=== PATIENT | male | born 1970 | race Caucasian/White ===

== ENCOUNTER 2017-01-08 01:54 | Emergency (ER) | payer OTHER ==
[~2017-01-08] VITALS: Ht 177.8 cm; Wt 113.6 kg
[2017-01-08 01:59] VITALS: BP 158/99; PULSE 64; RESP 26; O2SAT 100
--- NOTE | 2017-01-08 01:59 | ED.REPORT ---
HPI-Chest Pain 40 and Over Date of Service Jan 08, 2017 ED Provider: Sage Bowie MD Patient is a 46 year old male with a history of GERD and gastric ulcers who presents to the ED via EMS complaining of sharp epigastric abdominal pain that began this evening. Patient states reports radiation of his pain to his back. The patient went to work this morning and became dizzy due to the pain, ultimately calling EMS. He admits to hot flashes, diaphoresis, and nausea. Patient denies bloody/tarry stool. The patient reports having similar pain in the past, but it was not this severe and he did not seek evaluation of his pain. He denies a history of pancreatitis or gallbladder disease. The patient admits to drinking alcohol but states that he does not do so daily. Nursing Notes Stated Complaint: CHEST PAIN, ABD PAIN Chief Complaint: Chest Pain Nursing Notes Reviewed: Yes Allergies: Coded Allergies: No Known Allergies (Unverified , 01/08/17) Scheduled Omeprazole (Omeprazole) 20 Mg Tablet.dr 20 MG PO BID Scheduled PRN Ondansetron ODT (Ondansetron ODT) 8 Mg Tab.rapdis 8 MG PO QID PRN PRN For Nausea General Time Seen by MD: 01:59 Chief Complaint Other (abdominal pain) Hx Obtained From: Patient Arrived By: Ambulance Sudden in Onset?: No Onset Occurred: 1 - 4 hours ago Symptom Duration: Since onset Quality: Painful Severity: Current: Severe Severity: Maximum: Severe Recent Healthcare: No recent doctor visit, No recent hospitalization Similar Sx Previous: Yes Past Medical History Past Medical History gastric ulcer Reports: GERD, Hypertension Past Surgical History none reported Smoking History Unknown if Ever Smoker Social History Other Social History: Local resident Ambulatory Status Independent Review of Systems Constitutional: Reports: Fever (hot flashes) GI: Reports: Abdominal pain, Nausea, Denies: Bloody/tarry stool Skin: Reports Diaphoresis Neurologic: Reports: Dizziness, Denies: Change LOC Complete sys rev & neg: except as marked. Physical Exam Initial Vital Signs Vital Signs (First) Date Time Temp Pulse Resp B/P Pulse Ox O2 Delivery O2 Flow Rate FiO2 01/08/17 01:59 36.4 64 26 158/99 100 Room Air Initial VS: Reviewed Head / Eyes: Atraumatic, Normocephalic, PERRL ENT: Mucous membranes moist, Conjunctiva normal, No scleral icterus Neck: Supple, Full range of motion Extremities: No swelling, No tenderness Skin: Warm, Dry, No cyanosis Neurologic: Alert, Oriented, Nonfocal Psychiatric: Mood/affect normal, Behavior normal General/Constitutional: Awake, Alert, Well hydrated Appearance / Presentation: Positive: In pain, Uncomfortable Respiratory / Chest: Breath sounds NL, Breath sounds = bilat, No respiratory distress Cardiovascular: Heart rate NL, Heart sounds NL, No murmurs Heart Rate / Rhythm: Positive: Irregular rhythm Abdomen: Soft Tenderness/Guarding/Rebound: Positive: Tender epigastric (quite tender) Bowel Sounds / Distention: Positive: Distention mild Interpretation & Diagnostics Lab Results Interpretation Result Diagram: 01/08/17 0200 01/08/17 0200 Test 01/08/17 02:00 01/08/17 02:30 White Blood Count 11.2th/mm3 (3.8-10.1) Red Blood Count 5.31mil/mm3 (4.40-5.80) Hemoglobin 15.6g/dL (13.8-17.2) Hematocrit 46.6% (41.0-50.0) Mean Corpuscular Volume 87.8fL (81-100) Mean Corpuscular Hemoglobin 29.4pg (27.0-35.0) Mean Corpuscular Hemoglobin Concent 33.5% (32.0-37.0) Red Cell Distribution Width 13.1% (12.3-15.4) Platelet Count 253bil/L (150-400) Neutrophils (%) (Auto) 74.3% (40-74) Lymphocytes (%) (Auto) 16.1% (14-46) Monocytes (%) (Auto) 6.5% (4-12) Eosinophils (%) (Auto) 2.6% (0-5) Basophils (%) (Auto) 0.3% (0-3) Hold Purple Top Tube Received (Received) Prothrombin Time 9.7sec (8.1-12.5) Prothromb Time International Ratio 0.91ratio Hold Blue Top Tube Received (Received) Sodium Level 143mEq/L (134-144) Potassium Level 3.5mEq/L (3.5-5.2) Chloride Level 100mEq/L (97-108) Carbon Dioxide Level 25mmol/L (18-29) Blood Urea Nitrogen 14mg/dL (6-24) Creatinine 0.69mg/dL (0.76-1.27) Estimat Glomerular Filtration Rate 132mL/min (>59) Glucose Level 167mg/dL (60-99) Calcium Level 9.0mg/dL (8.5-10.1) Magnesium Level 2.0mg/dL (1.6-2.6) Total Bilirubin 0.3mg/dL (0.0-1.2) Aspartate Amino Transf (AST/SGOT) 22U/L (0-50) Alanine Aminotransferase (ALT/SGPT) 29U/L (0-44) Alkaline Phosphatase 75U/L (25-150) Total Protein 7.4g/dL (6.4-8.4) Albumin 4.3g/dL (3.4-5.0) Lipase 27U/L (13-60) Hold [place] Top Tube Received (Received) Lactic Acid Level 1.4mmol/L (0.4-2.0) ECG Interpretation ECG Interpretation: Sinus arrhythmia, Rate 59 ST elevation, probable normal early repol pattern Time: 02:10 Interpreted by: ED physician Normal ECG Interpretation: No change from prior ECGs CT Abd / Pelvis Interpretation IMPRESSION: Possible small stones versus sludge in the gallbladder. Radiologist: Henrry Lopez MD 01/08/2017 - 3:23:28 AM PDT Study type: Abdominal CT IV contrast Interpretation / Wet Read by: Interpret - Radiologist Re-Eval/Medical Decision Med Decision/Clinical Course 46-year-old presents with one of several episodes of epigastric pain radiates through to his back. He has a history in the past of gastric ulcer but no recurrence of bleeding or other similar symptoms. He does have some moderate reflux symptoms intermittently. His labs are basically unremarkable. His CT shows sludge and potentially stones in the gallbladder. There is no duct dilatation. Pancreas is unremarkable and pancreatic enzyme negative. He is likely having biliary colic intermittently, given his story and recent history. He is referred to the surgical office and also to the residency clinic for ongoing routine medical care. Home with Prilosec twice a day, low-fat diet, and follow up with surgical service. Source of Hx: Old records Time of Eval: 04:26 Patient Status: Condition improved Re-Evaluation/Progress Note: Rechecked the patient, who is now improved. His CT scan showed gallstones/sludge. He will need to have a cholecystectomy. Patient understands and agrees with the plan to be discharged home with pain medication. Discharge instructions and follow-up discussed. All questions were addressed. Return to the ED warnings given. Counseled Regarding: Diagnosis, Lab results, Need for follow-up, When/why to return to ED Discharge & Departure Primary Impression: Biliary colic Additional Impression: Gallstones Disposition: Home Discharge Condition All VS Reviewed: Yes Condition: Stable Patient Instructions: Biliary Colic (ED) Additional Instructions: You have gallstones in your gallbladder. This is likely the cause of your current symptoms. There is no evidence of acute infection or inflammation at this point. However, the presence of gallstones usually results in repetitive episodes of pain, and can cause life-threatening complications. It is generally recommended to get your gallbladder out, once you began to have symptomatic episodes. Begin Prilosec twice daily. Vicodin sparingly if needed for pain. Zofran up to four times daily if needed for nausea. Call the residency clinic for ongoing medical care. Call the surgical office for an office visit and evaluation for possible cholecystectomy. Return here if he develops fever, intractable pain or vomiting, white stools, or dark cola colored urine. Scribe Attestation Portions of this note were transcribed by Yessi Mccarthy. I, Dr. Bowie personally performed the history, physical exam and medical decision-making; I reviewed and confirmed the accuracy of the information in the transcribed note. Signed by: Delmi Dean, 01/08/2017 0512 Sage Bowie MD Jan 08, 2017 01:59 Yessi Mccarthy Jan 08, 2017 02:13
[2017-01-08] MEDS ORDERED: 0.9% Sodium Chloride 1,000 ML IV ONE (02:11)
[2017-01-08] MEDS ORDERED: Ondansetron 2 mg/mL 2 mL Inj IVPUSH ONE (02:15)
[2017-01-08] MEDS ORDERED: Pantoprazole 4 mg/mL 10 mL Inj IVPUSH ONE (02:15)
[2017-01-08 02:18] LABS: BASOPHILS % (AUTO) 0.3 % (0-3); EOSINOPHILS % (AUTO) 2.6 % (0-5); MONOCYTES % (AUTO) 6.5 % (4-12); Mean Corpuscular Hemoglobin 29.4 pg (27.0-35.0); Mean Corpuscular Volume 87.8 fL (81-100); NEUTROPHILS % (AUTO) 74.3 % (40-74); Platelet Count 253 bil/L (150-400)
[2017-01-08] MEDS: HYDROmorphone 1 mg/mL Inj IVPUSH PRN ×3 (02:23→03:29)
[2017-01-08 02:29] LABS: INR 0.91 ratio
[2017-01-08] MEDS ORDERED: _HYDROcodone/APAP 5-325 mg Tablet PO PRN (04:30)
[2017-01-08] MEDS ORDERED: HYDROcodone-APAP 5-325 mg Tablet PO ONE (04:30)
[2017-01-08] MEDS ORDERED: _Ondansetron ODT 4 mg Tablet PO PRN (04:30)
[2017-01-08] MEDS ORDERED: ONDA8TAB10 PO (04:32)
[2017-01-08] MEDS ORDERED: OMEP20TA86 PO (04:32)
[2017-01-08 04:39] VITALS: BP 158/99; PULSE 78; RESP 15; O2SAT 95
--- NOTE | 2017-01-08 10:22 | DRSVH ---
PROCEDURE: CT ABDOMEN AND PELVIS WITH CONTRAST ([id number]) INDICATIONS: upper abdo pain TECHNIQUE: After the administration of intravenous contrast, 5 mm thick sections acquired from the diaphragm to the symphysis. 5 mm coronal and sagittal reformats were acquired. For radiation dose reduction, the following was used: automated exposure control, adjustment of mA and/or kV according to patient siz e. COMPARISON: None. FINDINGS: Image quality: Excellent. ABDOMEN: Lung bases: Lung bases are clear. Heart size is normal. Solid organs: Liver and spleen are normal in size and enhancement. Gallbladder appears to contain s ludge dependently layering within the gallbladder posteriorly, a subtle finding. Biliary system is n on dilated. Pancreas enhances normally. No adrenal nodules. Kidneys demonstrate normal size and en hancement, without hydronephrosis. Peritoneum and bowel: Bowel loops demonstrate normal wall thickness and caliber. No free fluid or a ir. Nodes and vessels: No retroperitoneal or mesenteric adenopathy by size criteria. Aorta and inferior vena cava are normal in size. Miscellaneous: No ventral hernias. PELVIS: Genitourinary: Bladder wall thickness is normal. Miscellaneous: No inguinal hernias or adenopathy. Normal appendix. Bones: No suspicious bony lesions. No vertebral body compression fractures. IMPRESSION: Suspect sludge or even small stones layering dependently within the gallbladder lumen, bu t there is no associated inflammation of the gallbladder and no biliary distention is seen. Normal a ppendix found. Note: These findings are concordant with the preliminary interpretation. Dictated by: Abdelrahman Barrios M.D. on 01/08/2017 at 10:18 Approved by: Abdelrahman Barrios M.D. on 01/08/2017 at 10:20
== END 2017-01-08 04:55 | disposition home or self-care (01) ==
LOC: SED 01:54
DX: K80.50 Calculus of bile duct without cholangitis or cholecystitis without obstruction (principal); I10 Essential (primary) hypertension; K21.9 Gastro-esophageal reflux disease without esophagitis; F17.200 Nicotine dependence, unspecified, uncomplicated
CPT/HCPCS: 36415; 74177; 80053; 83605; 83690; 83735; 85025; 85610; 93005; 96361; 96374; 96375; 96376; 99285; J1170; J2405; J7030; Q9967

== ENCOUNTER 2017-02-10 09:21 | Day surgery (SDC) | payer OTHER ==
[~2017-02-10] VITALS: Ht 177.8 cm; Wt 101.2 kg
[~2017-02-10 09:21] MED LIST: OMEP20TA86 PO; ONDA8TAB10 PO; Sodium Chloride LOK Flush 10 mL Syringe IV PRN; fentaNYL-PF 50 mCg/mL 2 mL Inj IVPUSH PRN
[2017-02-10 09:45] VITALS: BP 126/81; PULSE 86; RESP 16; O2SAT 96
[2017-02-10] MEDS ORDERED: OXYC10TA86 PO (09:46)
[2017-02-10] MEDS: 0.9% Sodium Chloride 1,000 ML IV SCH ×3 (09:51→10:20)
[2017-02-10 10:25] VITALS: BP 121/73; PULSE 100; RESP 16; O2SAT 94
[2017-02-10 10:35] VITALS: BP 110/69; PULSE 92; RESP 16; O2SAT 94
[2017-02-10 10:45] VITALS: BP 114/69; PULSE 89; RESP 16; O2SAT 96
--- NOTE | 2017-02-10 11:08 | ENDO ---
[address] [address] ENDOSCOPY PROCEDURE PATIENT: HERBERT JERONIMO : 1970 MR#: [id number] ADMIT: 02/10/2017 JOB ID: [id number] DATE OF SERVICE: 02/10/2017 PREOPERATIVE DIAGNOSIS(ES): 1. Abdominal pain. 2. Gastroesophageal reflux disease. POSTOPERATIVE DIAGNOSIS(ES): 1. 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 2. Hiatal hernia. 3. Gastric polyp. PROCEDURE: Upper endoscopy with biopsy. SURGEON: Grant Araujo MD. INDICATIONS: A 46-year-old man who has a history of gastroesophageal reflux disease treated with omeprazole. He has abdominal pain and an upper endoscopy was requested by Dr. Nemesio Romero. FINDINGS: His GE junction was at 36 cm from the incisors. The distal esophageal mucosa was disrupted with what grossly appeared to be small patches of Thakur's esophagitis without obvious neoplasia, ulceration or stricture. The esophageal hiatus was at 38 cm, giving a 2 cm hiatal hernia. The retroflexed views of the cardia revealed a Hill grade I flap valve. He had typical benign appearing gastric polyps, one of which was removed. The antrum was randomly biopsied. The antrum, pylorus and duodenum into the third portion of the duodenum were normal. DESCRIPTION OF PROCEDURE: The procedure and sedation plan was discussed with the patient and nursing staff, and a procedural time-out was held. He gargled viscous Xylocaine. He received 4 mg of Versed and 100 mcg of fentanyl. Olympus GIF-H190 video endoscope was passed transorally, advanced into the third portion of the duodenum, withdrawn obtaining forward and retroflexed views of the stomach with the results as stated above. Again antral biopsy of the gastric polyp and GE junction biopsies were obtained. The patient tolerated the procedure well. There was only minimal bleeding. PLAN: He will return to Dr. Romero for discussion of histology and future plans.
--- NOTE | 2017-02-11 10:37 | PATH ---
SURGICAL PATHOLOGY Attending Physician:Lisa Allison CASE STATUS: Signed Out PATIENT NAME: HERBERT JERONIMO PID: [id number] : 1970 DATE COLLECTED:02/10/2017 16:36 SPECIMEN: 1: Stomach, Antrum, Biopsy 2: Stomach, Polyp, Biopsy 3: Esophagus, Biopsy CLINICAL HISTORY: 1. ANTRAL BXS 2. GASTRIC POLYP BXS 3. GEJ BXS FINAL DIAGNOSIS: 1.ANTRAL BIOPSIES: FRAGMENTS OF GASTRIC FUNDIC-TYPE MUCOSA, NEGATIVE FOR SIGNIFICANT INFLAMMATION. Negative for evidence of Helicobacter. Negative for intestinal metaplasia. Negative for dysplasia and malignancy. 2.GASTRIC POLYP BIOPSIES: FUNDIC GLAND POLYP, NEGATIVE FOR ATYPIA. Negative for evidence of Helicobacter. Negative for intestinal metaplasia. Negative for dysplasia and malignancy. 3.GASTROESOPHAGEAL JUNCTION BIOPSIES: SQUAMOUS MUCOSA AND GASTRIC CARDIA-TYPE MUCOSA POSITIVE FOR SPECIALIZED METAPLASIA OF PAREDES' S-TYPE ESOPHAGUS. Negative for dysplasia and malignancy. Negative for squamous intraepithelial eosinophils. ICD10 K22.70 GROSS DESCRIPTION: The specimen is received in three formalin filled containers labeled with the patient's name. 1). The specimen is sublabeled "antral" and consists of 3 portions of tissue which aggregate to 0.3 x 0.3 x 0.2 CM. The specimen is entirely submitted in cassette 1A. 2). The specimen is sublabeled "gastric polyp" and consists of 2 portions of tissue which aggregate to 0.3 x 0.2 x 0.2 CM. The specimen is entirely submitted in cassette 2A. 3). The specimen is sublabeled " GEJ " and consists of 4 portions of tissue which aggregate to 0.3 x 0.3 x 0.3 CM. The specimen is entirely submitted in cassette 3A. 02/10/2017 [facility] MICRO DESCRIPTION: See diagnosis. ICD-9 CODES: CPT CODES: 1: 77129 2: 29116 3: 14668 Electronically Signed Out Abimael Kendall MD [facility] [address], [place] [address] Technical component performed at [facility], [facility] [address], [place], [address]
== END 2017-02-10 23:59 | disposition home or self-care (01) ==
LOC: END 09:21
PROVIDERS: ATTEND Surgery
DX: K22.70 Barrett's esophagus without dysplasia (principal); K31.7 Polyp of stomach and duodenum; K44.9 Diaphragmatic hernia without obstruction or gangrene; R10.13 Epigastric pain; K21.9 Gastro-esophageal reflux disease without esophagitis; E66.8 Other obesity; Z68.32 Body mass index [BMI] 32.0-32.9, adult
CPT/HCPCS: 43239; G0500; J7030

== ENCOUNTER 2017-03-29 09:38 | Day surgery (SDC) | payer OTHER ==
[2017-03-29] VITALS (8 sets, daily range): BP systolic 117–132; BP diastolic 70–91; PULSE 80–106; RESP 12–16; O2SAT 95–100
[~2017-03-29] VITALS: Ht 177.8 cm; Wt 97.2 kg
[~2017-03-29 09:38] MED LIST changes: +ONDA-54 PO; -ONDA8TAB10 PO; +OXYC1TAB24 PO; -Sodium Chloride LOK Flush 10 mL Syringe IV PRN; -fentaNYL-PF 50 mCg/mL 2 mL Inj IVPUSH PRN; +levoFLOXacin Inj 500 MG in IV Premix 1 EACH IV ONE
[2017-03-29] MEDS ORDERED: Rocuronium 10 mg/mL 5 mL Inj ONE (09:39)
[2017-03-29] MEDS ORDERED: Dexamethasone 4 mg/mL Inj ONE (09:39)
[2017-03-29] MEDS ORDERED: Propofol 10,000 mCg/mL 20 mL Inj ONE (09:39)
[2017-03-29] MEDS ORDERED: Ondansetron 2 mg/mL 2 mL Inj ONE (09:39)
[2017-03-29] MEDS ORDERED: fentaNYL-PF 50 mCg/mL 2 mL Inj ONE (09:39)
[2017-03-29] MEDS: Lactated Ringer's 1,000 ML IV SCH ×2 (09:47→12:30)
[2017-03-29] MEDS ORDERED: Phenylephrine 10,000 mCg/mL Inj IVPUSH PRN (12:15)
[2017-03-29] MEDS ORDERED: Ondansetron 2 mg/mL 2 mL Inj IVPUSH PRN (12:15)
[2017-03-29] MEDS ORDERED: Lactated Ringer's 1,000 ML IV SCH (12:15)
[2017-03-29] MEDS ORDERED: Lactated Ringer's 500 ML IV PRN (12:15)
[2017-03-29] MEDS ORDERED: MetoCLOpramide 5 mg/mL 2 mL Inj IVPUSH PRN (12:15)
[2017-03-29] MEDS ORDERED: Dexamethasone 4 mg/mL Inj IVPUSH PRN (12:15)
[2017-03-29] MEDS ORDERED: EPHEDrine Sulfate 50 mg/mL Inj IVPUSH PRN (12:15)
[2017-03-29] MEDS ORDERED: HYDROmorphone 1 mg/mL Inj IVPUSH PRN (12:15)
--- NOTE | 2017-03-29 12:15 | PCM.HPANE ---
Patient Data Date of Service: Mar 29, 2017 ([id number]) Surgeon Admitting Provider: Attending Provider:Nemesio Romero MD Primary Care Physician:Tristian Other Provider:Jessica Gallegos Anesthesia Reason for Visit Cholithiasis Ht/WT & BMI Height (Feet): 5 Height (Inches): 10 Weight (Kilograms): 97.2 Body Mass Index 30.00 Allergies Coded Allergies: No Known Allergies (Unverified , 03/29/17) Past Anesthesia History Anesthesia History: Denies:: Abnormal Airway, Anesthesia Reactions, Difficult Intubation, Fam Anesthesia Reaction, Fam Malignant Hypertherm, Malignant Hyperthermia Diabetes History Hx Diabetes?: No MRSA MRSA: No Medications Hypertension Medication: No Home Meds Incl Beta González: No Active Scripts Omeprazole 20 Mg Tablet.dr20 Mg PO BID #60 TABLET Prov:Sage Bowie MD 01/08/17 Reported Medications oxyCODONE-Acetaminophen 5-325 mg 1 Each Tablet1 Tab PO Q6H PRN For Pain Ref 0 03/23/17 Ondansetron 8 Mg Tablet8 Mg PO Q8H PRN For Nausea 03/23/17 Discontinued Reported Medications oxyCODONE ER 10 Mg Tab.er.12h10 Mg PO Q12H PRN For Pain 02/10/17 History History of ENT Problems?: No HEENT History: Denies:: Abnormal Airway Cataracts Difficult Intubation Dysphagia Glaucoma Hearing Problem Sinus Problem TMJ Denture Type: None Teeth Condition: Within Normal Limits Hx of Heart Problems?: No Cardiovascular History: Positive for:: Hypertension Denies:: AICD Abdominal Aortic Aneurism Atrial Fibrillation Cardiac Surgery Congestive Heart Failure Edema Heart Murmur Irregular Heartbeat Pacemaker Peripheral Vascular Rheumatic Fever Hx of Respiratory Problem?: No Respiratory History: Denies:: Asthma COPD Emphysema Oxygen Administration Pneumonia Tuberculosis Use of C-PAP Machine Hx Neurologic Problems?: No Neurological History: Denies:: CVA Dementia Headaches Multiple Sclerosis Parkinson's Disease Seizures Hx of GI Problems?: Yes Hx of Problems?: No Genitourinary History: Denies:: Kidney Stones Urinary Tract Infection HX of Peritoneal Dialysis: No Male Hx: Denies:: Prostate Problems Skin History: Denies:: History Skin Disorders? Pressure Ulcers Hx Musculoskeletal Problems?: Yes Musculoskeletal History: Positive for:: Back Injury (cervical neck strain- back "bad") Osteoarthritis (back, hip, knees pain) Denies:: Fibromyalgia Joint Replacement Musculoskeletal Trauma Myasthenia Gravis Systemic Lupus Psycho Social History: Denies:: Anxiety Hx Depression Hx Surgeries?: Yes (endoscopy with sedation) Hx Any Other Health Problems?: Yes Other History: Denies:: Cancer Thyroid Disease History Blood Transfusions: Positive for:: Accept Blood Products? Denies:: Blood Transfusions Hx Diabetes: No Hx Alcohol Use: Yes (average 6 drinks-socially. denies drinking daily )Hx Substance Use: Yes (THC) Smoking Status: Former Smoker Have You Smoked inLast 12 mo: No Stop/Bang S-Snoring: Do You Snore Loudly: No T-Tired: feel tired, fatigued: No O-Obsered: Observed not breath: No P-Blood Pressure: treated: No B- Body Mass Index > 35 kg/m2: No A- Age over 50: No N- Neck Large Circumference: No G- Gender Male: Yes LAUREN Total Score: 1 LAUREN Risk Assessment: Low Risk, <3 Yes Risk Assessment Category Category 1A: Patient has history of documented sleep apnea, and HAS NOT received any narcotic, sedative or anesthesia administration during this stay. Category 1B: Patient has history of documented sleep apnea, and HAS received any narcotic , sedative or anesthesia administration during this stay Category 2: Patient has SUSPECTED Obstructive Sleep Apnea, and HAS received any narcotic , sedative or anesthesia administration during this stay. Category 3: Patient has SUSPECTED Obstructive Sleep Apnea and HAS NOT received narcotic, sedative or anesthesia administration during this stay. Category 4: Outpatient in Procedural Areas with known sleep apnea or who screen positive for High Risk via the STOP/BANG questionnaire. Exam Exam Vital Signs Vital Signs Date Time Temp Pulse Resp B/P Pulse Ox O2 Delivery O2 Flow Rate FiO2 03/29/17 10:16 36.6 80 16 117/72 95 Room Air General Appearance: Alert, Oriented X3, Cooperative HEENT/AIRWAY: MP 2 Lungs: Clear to Auscultation Heart: Exam Unremarkable Meds/Labs/Diagnostics Admission Meds Current Medications Lactated Ringer's (Lr) 1,000 ml @ 120 mls/hr Q8H20M IV Last administered on 09:47; Start 03/29/17 at 05:00; Stop 03/29/17 at 13:19 Gabapentin (Neurontin) 600 mg STK-MED ONCE .ROUTE Last administered on 7/11/ 17at 10:10; Start 03/29/17 at 10:04; Stop 03/29/17 at 10:05; Status DC Celecoxib (CeleBREX) 200 mg STK-MED ONCE .ROUTE Last administered on 03/29/17 10:10; Start 03/29/17 at 10:04; Stop 03/29/17 at 10:05; Status DC Scopolamine (Transderm-Scop Patch) 1.5 mg STK-MED ONCE TOPICAL Last administered on 03/29/17 10:10; Start 03/29/17 at 10:04; Stop 03/29/17 at 10:05 ; Status DC Acetaminophen (Tylenol) 975 mg STK-MED ONCE PO Last administered on 03/29/17 10:10; Start 03/29/17 at 10:04; Stop 03/29/17 at 10:05; Status DC Plan Impression Patient chart reviewed, patient interviewed and anesthestic plan with risks, benefits, and alternatives discussed, and informed consent obtained. NPO per Anesth. Guidelines: Yes ASA Physical Status: ASA2 Mod Systemic Disease Anesthetic Plan: GA Bene/Risks/Altern/Consents: Yes HP Complete Prior to Induction: Yes Miguel Coburn MD Mar 29, 2017 12:15
[2017-03-29] MEDS ORDERED: Bupivacaine-MPF 0.5% 30 mL Inj INFILTRATE ONE (13:01)
--- NOTE | 2017-03-29 15:14 | PCM.ANEP1 ---
Post Anesthesia PACU Phase 1 Assessment Vital Signs 102, 18, 99%, 36.6, 132/91 Vital Signs Date Time Temp Pulse Resp B/P Pulse Ox O2 Delivery O2 Flow Rate FiO2 03/29/17 10:16 36.6 80 16 117/72 95 Room Air Anesthetic Administered: GA Level of Alertness: Awake, talking GARCIA's with Equal Strength: Yes Pain: No Pain Scale Score: 0 Nausea or Vomiting: No CV Function & Hydration Stable: Yes Airway Device: none Lungs: Clear to Auscultation Dermatome Level: Full Sensation Summary uneventful GETA PACU Phase 2 Assessment Complications: No Follow up Care: No Patient Instructions Provided: N/A Miguel Coburn MD Mar 29, 2017 15:14
--- NOTE | 2017-03-29 15:15 | PCM.DISURG ---
Surgical Discharge Instruction Date of Service Mar 29, 2017 Dates of Hospitalization Date of Hospital Admission Providers Admitting Physician: Primary Care Physician: Tristian Attending Physician: Nemesio Romero MD Diet Discharge Diet: No restrictions Activity Discharge Activity-General: Activity as pain allows, No lifting >15 pounds for 2 weeks, No driving while taking narcotic Dressing and Incisional Care Dressing Care: Allow Steri Stripes to fall off, Remove outer dressing after 24 hrs Hygiene: May shower after (24 hours), DO NOT soak incision under water, NO bathtub, hot tub or whirlpool Additional Instructions Discharge Instructions Follow up in the general surgery clinic in the next 1-3 weeks. Please call at any time with questions or concerns. Follow Up Plan Call your provider for: Fever, Increasing abdominal pain, Nausea, Vomiting, Wound redness, Increasing wound pain, Discharge @ incision, pus discharge Dl Fishman MD Mar 29, 2017 15:14
[2017-03-29] MEDS: fentaNYL-PF 50 mCg/mL 2 mL Inj IVPUSH PRN ×2 (15:25→15:40)
--- NOTE | 2017-03-29 15:33 | DRSVH ---
PROCEDURE: X-RAY OPERATIVE CHOLANGIOGRAM ([id number]) INDICATIONS: CHOLILITHIASIS COMPARISON: None. FINDINGS: Biliary ducts: The surgeon injected contrast into the biliary ducts after cannulation of the cystic duct stump. Visualized intra- and extrahepatic bile ducts are normal in caliber, without strictures. No intraluminal filling defects to suggest retained ductal stones or sludge. No evidence for iatro genic ductal injury. Duodenum: Contrast flows promptly through the sphincter of Oddi into the duodenum, which appears nor mal in caliber. IMPRESSION: Normal intraoperative cholangiogram. Dictated by: Sandi Stone M.D. on 03/29/2017 at 15:30 Approved by: Sandi Stone M.D. on 03/29/2017 at 15:30
--- NOTE | 2017-03-29 15:37 | PCM.SURGPO ---
Immediate Operative Note Date of Surgery: Mar 29, 2017 Pre Operative Diagnosis Cholelithiasis Post Operative Diagnosis Cholelithiasis Procedure Laparoscopic Cholecystectomy with Intraoperative Cholangiogram Surgeon and Nurse Discharge Surgeon: Nemesio Romero MD Assistants: Dl Fishman MD Findings Normal Cholangiogram Complications There were no periprocedural complications identified. Surgical Specimen Removed: Yes Specimen sent to Pathology: Yes Anesthetic Administered: GA Grafts, Implants: None Output, Estimated Blood Loss: 5 Blood Admin during surgery: No Attending Statement Personal Driver listed was medically necessary for the successful completion of the case Nemesio Romero MD Mar 29, 2017 15:37
[2017-03-29] MEDS: oxyCODONE-Acetamin 5-325 mg Tablet PO PRN ×2 (16:04→16:34)
--- NOTE | 2017-03-29 16:30 | OP ---
[address] [address] OPERATIVE REPORT PATIENT: HERBERT JERONIMO : 1970 MR#: [id number] ADMIT: 03/29/2017 JOB ID: [id number] DATE OF SURGERY: 03/29/2017 PREOPERATIVE DIAGNOSIS(ES): Cholelithiasis. POSTOPERATIVE DIAGNOSIS(ES): Cholelithiasis. PROCEDURE PERFORMED: Laparoscopic cholecystectomy with intraoperative cholangiogram. SURGEON: Nemesio Romero M.D. HOME THEATRE TECHNICIAN: Dl Enrique M.D. INDICATIONS: The patient is a 46-year-old gentleman who had a longstanding diagnosis of ulcer disease for which he had been taking medications, omeprazole more recently. He presented to the emergency department on January 08, 2017 with sharp upper abdominal pain. He was diagnosed with a possible biliary colic prompting request for surgical consultation. I met him and requested an upper endoscopy and abdominal ultrasound and confirmed his cholelithiasis. Upper endoscopy did not reveal any obvious explanation for his pain other than Thakur esophagitis. PROCEDURE DETAILS: He was placed in the supine position. Underwent smooth induction of general anesthesia. Abdomen was prepped and draped in the usual sterile fashion. Surgical time-out was undertaken using safety checklist, and all were in agreement. I began by making a supraumbilical incision, entered the abdomen using open Pratibha technique and obtained pneumoperitoneum. I then placed three 5 mm ports under direct vision in the right upper abdomen and the epigastrium and retracted the gallbladder cephalad and to the right. We then dissected the triangle of Calot anteriorly and posteriorly. We did encounter some bleeding along the gallbladder edge more away from the danie, but we controlled it without difficulty. After that we identified the cystic artery, divided it between clips and skeletonize the cystic duct and clipped it on the specimen side and obtained a cholangiogram. The cholangiogram showed normal anatomy with no filling defects and we then clipped it doubly on the patient's side and divided it. We then dissected the gallbladder free from the liver bed with good hemostasis, placed it in an EndoCatch bag and removed it through the supraumbilical port site. We then suctioned all fluid free from the right upper quadrant, ensured hemostasis and then closed the umbilical port site after evacuating the pneumoperitoneum with a 0-Vicryl suture. The skin was reapproximated with 4-0 Monocryl. Steri-Strips and sterile dressing were applied. The patient was recovered from anesthesia and was taken to the recovery room in stable condition.
--- NOTE | 2017-03-31 17:49 | PATH ---
SURGICAL PATHOLOGY Attending Physician:Nemesio Romero MD CASE STATUS: Signed Out PATIENT NAME: HERBERT JERONIMO PID: [id number] : 1970 DATE COLLECTED:03/29/2017 00:00 SPECIMEN: Gallbladder CLINICAL HISTORY: CHOLELITHIASIS 1). GALLBLADDER FINAL DIAGNOSIS: 1.GALLBLADDER, CHOLECYSTECTOMY: CHRONIC CHOLECYSTITIS WITH CHOLELITHIASIS. NO EVIDENCE OF DYSPLASIA OR MALIGNANCY. ICD10 K80.60 GROSS DESCRIPTION: Received one formalin-filled container, labeled with the patient' s name and labeled "gallbladder". The specimen consists of an opened 9.5 x 3.5 x 2.5 cm gallbladder. The serosa is smooth. The wall is 0.2-0.6 cm in thickness. The mucosa is pink-goff to green-goff in color. The lumen contains a dark green mucoid material and approximately 20-30 fragments of green-goff fragmented calculi which range in size from less than 0.1 cm to 1.2 cm in greatest dimension. Five tax compliance representative sections are submitted in one cassette. ([id number]) MICRO DESCRIPTION: See diagnosis. ICD-9 CODES: CPT CODES: 1: 99845 Electronically Signed Out Scarlet Estrada MD [facility] [address], [place] [address] Technical component performed at [facility], [facility] [address], [address]
== END 2017-03-29 23:59 | disposition home or self-care (01) ==
LOC: SAS 09:38
PROVIDERS: ATTEND Student in an Organized Health Care Education/Training Program
DX: K80.10 Calculus of gallbladder with chronic cholecystitis without obstruction (principal)
CPT/HCPCS: 47563; 74300; C1713; J1100; J2250; J2405; J3010; J7120; Q9967